=== PATIENT | male | born 1985 | race Caucasian/White ===

== ENCOUNTER 2016-08-02 10:41 | Day surgery (SDC) | payer OTHER ==
[2016-08-02] MEDS ORDERED: MIDAZOLAM 2 MG/2 ML INJ ONE (10:55)
[2016-08-02] MEDS ORDERED: CARBOXYMETHYLCELLULOSE SOD 0.5% 0.4 ML DROPERETTE ONE (10:55)
[2016-08-02] MEDS ORDERED: FENTANYL CITRATE INJ/PF 100 MCG/2 ML AMPUL ONE ×2 (10:55→10:56)
[2016-08-02] MEDS ORDERED: DEXAMETHASONE SOD PHOS INJ 10 MG/1 ML VIAL ONE ×2 (10:56→11:02)
[2016-08-02] MEDS ORDERED: ROCURONIUM BROMIDE INJ 50 MG/5 ML VIAL IV ONE (10:56)
[2016-08-02] MEDS ORDERED: SUCCINYLCHOLINE CHLORIDE INJ 200 MG/10 ML VIAL ONE (10:56)
[2016-08-02] MEDS ORDERED: PROPOFOL INJ 200 MG/20 ML VIAL IV ONE (10:56)
[2016-08-02] MEDS ORDERED: ONDANSETRON HCL INJ/PF 4 MG/2 ML SDV ONE ×2 (10:56→15:25)
[2016-08-02] MEDS ORDERED: LIDOCAINE 1%/EPINEPHRINE INJ 20 ML VIAL ONE (11:01)
[2016-08-02] MEDS ORDERED: OXYMETAZOLINE HCL 0.05% NASAL SPRAY 15 ML BOTTLE ONE (11:01)
[2016-08-02] MEDS ORDERED: WATER FOR INJECTION,STERILE 10 ML SDV ONE (11:02)
[2016-08-02] MEDS ORDERED: ALBUTEROL SULFATE 0.083% NEB 2.5 MG/3 ML AMPUL NEB ONE (11:14)
[2016-08-02] MEDS ORDERED: HYDROMORPHONE HCL INJ/PF 2 MG/ML AMPULE ONE (11:26)
--- NOTE | 2016-08-02 14:46 | SURGICARE OPERATIVE REPORT E ---
[facility] Operative Report NAME: ORTIZ WELDON AGE: 30Y DATE OF SURGERY: 08/02/2016 ROOM: PREOPERATIVE DIAGNOSES: BILATERAL CHRONIC SINUSITIS. RIGHT NASAL SEPTUM DEVIATION. POSTOPERATIVE DIAGNOSES: BILATERAL CHRONIC SINUSITIS. RIGHT NASAL SEPTUM DEVIATION. OPERATION: Bilateral endoscopic maxillary antrostomies. Bilateral endoscopic anterior ethmoidectomies. Bilateral endoscopic frontal sinusotomies. Endoscopic septoplasty. CT-based image guidance for the dissection along the orbits and skull base. SURGEON: JOLEEN MISHRA M.D. ANESTHESIA: General endotracheal. ESTIMATED BLOOD LOSS: 100 mL. COMPLICATIONS: None. INTRAOPERATIVE FINDINGS: There was bilateral ethmoid and maxillary sinusitis with nasal polyposis. There was left maxillary sinus mucopurulence and inflammation. There was a near complete obstructive right nasal septal deviation obstructing access to the middle meatus. INDICATIONS FOR PROCEDURE: A 30-year-old male with chronic nasal congestion secondary to chronic sinusitis. He had continued to experience baseline congestion with acute exacerbations several times per year. He endorsed a recent exacerbation over the last couple of weeks. PROCEDURE IN DETAIL: The patient was met in the preoperative holding area, all questions were answered and consent was verified. He was then brought back to the operating room and placed supine on the operating table and general endotracheal anesthesia was induced without difficulty. The table was positioned for endoscopic sinus surgery and a [employer] image guidance headpiece was taped on his forehead. The image guidance system was calibrated and verified for accuracy using external landmarks from his most recent sinus CT. The nasal cavities were decongested with oxymetazoline. He was prepped and draped in the standard fashion. Operative time-out was performed. The entirety of the procedure was performed under 0-degree endoscopic guidance. The left side was approached first given the significant right-sided nasal septum deviation. The axilla and body of the middle turbinates were infiltrated with 1% lidocaine with 1:100,000 epinephrine. The inferior turbinate was lateralized and middle turbinate was medialized. The uncinate process was reflected outwards with a sinus Seeker and incised with a powered microdebrider. The ostium of the maxillary sinus was cannulated and expanded posteriorly using thru-cutting forceps and the powered microdebrider. The anterior ethmoidectomy was then carried out by reducing the ethmoid bulla from medial to lateral towards the lamina papyracea. There were some polypoid changes in the mucosa of the turbinate. The anterior most ethmoid cells were then punched inferiorly through a transaxillary approach. The septations were swept from posterior to anterior with an angled curette. These were removed with an up-biting Blakesleys forceps allowing access and visualization of the frontal sinus with the 0-degree endoscope. Bony septations were cleaned out of the anterior ethmoid cavity and this was temporarily packed with oxymetazoline pledgets while performing the remainder of the procedure. The endoscopic septoplasty was carried out with a right-sided hemitransfixion incision and an ipsilateral mucoperichondrial flap was elevated. There was a significant deviation including a very sharp angled bony spur that was contacting the middle turbinate. This resulted in a significant defect of the flap on the right side. The contralateral flap was elevated without any apposed defect. The deviated aspect of the septum was removed piecemeal with rongeurs and Blakesleys forceps. Once good access was achieved to the middle meatus, similar procedures were carried out on the right side. The middle turbinate was medialized and the uncinectomy was carried out, followed by the maxillary antrostomy and anterior ethmoidectomy. The agger nasis were punched out and reflected inferiorly. This allowed access to the frontal outflow which was naturally narrow on the right side due to a prominent frontal beak. Hemostasis in the cavities was verified and they were irrigated with sterile saline. Modified Pryor splints were placed on each nasal cavity leading up to the ethmoid cavity and they were secured anteriorly with Prolene suture. Stammberger Sinu-Foam that was reconstituted with 10 mg of dexamethasone was then placed as a spacer in each ethmoid cavity. The nasopharynx was suctioned and he was turned over to the anesthesia team for reversal and extubation. He tolerated the procedure well. DICTATING PHYSICIAN: JOLEEN MISHRA M.D. [id number] PHY#: [id number] ID: [id number] JOB#: [id number] ACCT: [id number] cc:JOLEEN MISHRA M.D. >
[2016-08-02] MEDS ORDERED: HYDROCODONE/ACETAMINOPHEN 5-325 MG TABLET ONE (14:56)
== END 2016-08-02 15:46 | disposition home or self-care (01) ==
LOC: SC 10:41
PROVIDERS: ATTEND Otolaryngology
PROC: 09TU4ZZ Resection of Right Ethmoid Sinus, Percutaneous Endoscopic Approach (ICD-10-PCS; 2016-08-02)
PROC: 099R4ZZ Drainage of Left Maxillary Sinus, Percutaneous Endoscopic Approach (ICD-10-PCS; 2016-08-02)
PROC: 099Q4ZZ Drainage of Right Maxillary Sinus, Percutaneous Endoscopic Approach (ICD-10-PCS; 2016-08-02)
PROC: 09BM4ZZ Excision of Nasal Septum, Percutaneous Endoscopic Approach (ICD-10-PCS; 2016-08-02)
PROC: 09BT4ZZ Excision of Left Frontal Sinus, Percutaneous Endoscopic Approach (ICD-10-PCS; 2016-08-02)
PROC: 09BS4ZZ Excision of Right Frontal Sinus, Percutaneous Endoscopic Approach (ICD-10-PCS; 2016-08-02)
PROC: 09TV4ZZ Resection of Left Ethmoid Sinus, Percutaneous Endoscopic Approach (ICD-10-PCS; principal; 2016-08-02 11:15)
DX: J32.9 Chronic sinusitis, unspecified (principal); J34.2 Deviated nasal septum; Z87.891 Personal history of nicotine dependence
CPT/HCPCS: 88304 ×2; 31254; 31256; 30520; 31276; J2250; J3490 ×5; J3010; J1170; J0330; J2405; J2704; J1100; 170